=== PATIENT | female | born 1995 | race Caucasian/White ===

== ENCOUNTER 2020-04-09 15:38 | Emergency (ER) | payer OTHER ==
[~2020-04-09] VITALS: Ht 160 cm; Wt 96.3 kg
--- NOTE | 2020-04-09 16:11 | NUR ---
RALPH X 4 DAYS, SUNDAY STARTED INTERMITTENT DOUBLE VISION & DIZZINESS, YESTERDAY INTERMITTENT SLURRED SPEECH. CURRENTLY RESP EVEN & UNLABORED, SPEECH CLEAR, SKIN WNL; INTERMITTENT DOUBLE VISION TODAY W/ RALPH. DENIES HX MIGRAINES, GLASSES/CONTACTS, N/V, NUMBNESS/TINGLING TO EXTREMETIES. ADMITS TO OCCASIONAL ETOH INTAKE. TOOK IBUPROFEN YESTERDAY. TAKES XYZAL DAILY.
[2020-04-09] MEDS ORDERED: LEVO5TAB29 PO (16:14)
[2020-04-09 17:00] LABS: BASOPHILS # (AUTO) 0.09 x10^3/uL (0-0.1); BASOPHILS % (AUTO) 1 % (0-1); EOSINOPHILS # (AUTO) 0.33 x10^3/uL (0-0.4); EOSINOPHILS % (AUTO) 4 % (1-7); LYMPHOCYTES # (AUTO) 2.98 x10^3/uL (1-3.4); LYMPHOCYTES % (AUTO) 33 % (22-44); MD NO; MEAN CORPUSCULAR HEMOGLOBIN 30.2 pg (27.0-34.8); MEAN CORPUSCULAR HGB CONC 34.1 g/dL (32.4-35.8); MEAN CORPUSCULAR VOLUME 88.6 fL (80-100); MONOCYTES % (AUTO) 4 % (2-9); NEUTROPHILS # (AUTO) 5.22 x10^3/uL (1.8-6.8); NEUTROPHILS % (AUTO) 58 % (42-75); PLATELET COUNT 284 x10^3/uL (130-400); RED BLOOD COUNT 4.68 x10^6/uL (3.82-5.3); RED CELL DISTRIBUTION WIDTH 13.2 % (9.6-15.2)
[2020-04-09 17:14] LABS: ALBUMIN 3.5 g/dL (3.4-5.0); ANION GAP 4 mmol/L (5-15); CALCIUM 8.5 mg/dL (8.5-10.1); CHLORIDE 111 mmol/L (98-107); CREATININE 0.85 mg/dL (0.55-1.02)
[2020-04-09] MEDS ORDERED: KETOROLAC 30 MG/1 ML IM ONE (18:00)
[2020-04-09] MEDS ORDERED: DIPHENHYDRAMINE 25 MG CAPSULE PO ONE (18:00)
[2020-04-09] MEDS ORDERED: METOCLOPRAMIDE 10MG TABLET PO ONE (18:00)
--- NOTE | 2020-04-09 18:08 | NUR ---
PT REPORT TO JEANA WATSON. PT CARE TRANSFERRED.
[2020-04-09] MEDS ORDERED: METOCLOPRAMIDE 10MG TABLET ONE (18:09)
[2020-04-09] MEDS ORDERED: DIPHENHYDRAMINE 25 MG CAPSULE ONE (18:09)
[2020-04-09] MEDS ORDERED: KETOROLAC 30 MG/1 ML ONE (18:09)
--- NOTE | 2020-04-09 18:12 | NUR ---
ASSUMED CARE OF PATIENT. REPORT GIVEN FROM JEANA WEST
--- NOTE | 2020-04-09 18:26 | NUR ---
PT RESTING IN ROOM. NO ACUTE DISTESS NOTED. VS STABLE. CALL LIGHT IN PLACE. WILL CONTINUE TO [place]IOR.
--- NOTE | 2020-04-09 19:25 | NUR ---
PT REPORTS HE HEADACHE IS GONE, BUT SHE HAS HAD SOME DOUBLE VISION. AWARE.
--- NOTE | 2020-04-09 19:58 | NUR ---
SECOND SET OF VA'S DONE PER DR YUN
[2020-04-09 20:16] VITALS: BP 118/55
--- NOTE | 2020-04-09 20:16 | NUR ---
PT DISCHARGED PER DR YUN.
== END 2020-04-09 20:24 | disposition home or self-care (01) ==
LOC: ED 20:00
DX: R51 Headache (principal); R42 Dizziness and giddiness; H53.8 Other visual disturbances
CPT/HCPCS: 36415; 70450; 80048; 82040; 84703; 85025; 93005; 96372; 99285; J1885; Q0163